=== PATIENT | male | born 1965 | race African-American/Black ===

== ENCOUNTER 2017-04-23 10:48 | Emergency (ER) | payer MEDICAID ==
[~2017-04-23] VITALS: Ht 165.1 cm; Wt 64.0 kg
[~2017-04-23 10:48] MED LIST: CYCL5TAB PO; FERR-63 PO; IBUP-2029 PO; TRAM50TA3 PO; VITAMIN D2
[2017-04-23 11:26] VITALS: BP 109/78
[2017-04-23 14:09] LABS: BASOPHILS % 0.8 % (0.0-2.0); EOSINOPHILS % 1.4 % (0.0-5.0); HEMATOCRIT. 45.3 % (42.0-52.0); HEMOGLOBIN. 15.1 g/dL (14.0-18.0); LYMPHOCYTES % 31.7 % (20.0-50.0); MEAN CORPUSCULAR HEMOGLOBIN 30.4 pg (28.0-32.0); MEAN CORPUSCULAR VOLUME 91.3 fL (80.0-94.0); MEAN PLATELET VOLUME 8.9 fl (7.4-10.4); MONOCYTES % 9.4 % (2.0-8.0); NEUTROPHILS % 56.7 % (40.0-76.0); PLATELET 234 x1000/uL (130-400); RED BLOOD CELL COUNT 4.97 mill/uL (4.7-6.1); RED CELL DISTRIBUTION WIDTH 15.7 % (11.6-14.6)
[2017-04-23 14:24] LABS: CARBON DIOXIDE 30 mEq/L (21-32); CHLORIDE 101 mEq/L (98-107)
== END 2017-04-23 16:51 | disposition left against medical advice (07) ==
LOC: ER 10:48
DX: L29.9 Pruritus, unspecified (principal); R17 Unspecified jaundice; H15.89 Other disorders of sclera; F17.200 Nicotine dependence, unspecified, uncomplicated; F14.10 Cocaine abuse, uncomplicated; F12.10 Cannabis abuse, uncomplicated
CPT/HCPCS: 36415; 80053; 85025; 99284